=== PATIENT | male | born 1965 | race American Indian/Alaskan Native ===

== ENCOUNTER 2020-05-31 11:25 | Outpatient (CLI) | payer OTHER ==
--- NOTE | 2020-05-31 13:28 | XRay Report ---
LEFT KNEE 3 VIEWS INDICATION / CLINICAL INFORMATION: LEFT KNEE PAIN. COMPARISON: None available. FINDINGS: Enthesopathic change in the superior patella. No other significant skeletal abnormality Signer Name: Vasquez Pink MD FACNeptali Signed: 05/31/2020 1:08 PM Workstation Name: [id number]
--- NOTE | 2020-05-31 13:29 | XRay Report ---
LEFT HIP 3 VIEWS INDICATION / CLINICAL INFORMATION: LEFT HIP PAIN. COMPARISON: None available. 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 No other significant skeletal abnormality Signer Name: Vasquez Pink MD FACR Signed: 05/31/2020 1:08 PM Workstation Name: [id number]
== END 2020-05-31 11:26 | disposition home or self-care (01) ==
LOC: XRAY 11:25 → EDBD 11:25 → XRAY 11:26
PROVIDERS: ATTEND Internal Medicine
DX: M16.12 Unilateral primary osteoarthritis, left hip (principal); M76.892 Other specified enthesopathies of left lower limb, excluding foot